=== PATIENT | male | born 1945 | race Caucasian/White ===

== ENCOUNTER 2016-12-16 15:15 | Emergency (ER) | payer MEDICARE, BC ==
--- NOTE | 2016-12-16 16:16 | EDM.PDOC ---
[id number] 4d ABDOMINAL PAIN Time Seen by Provider: 12/16/16 16:13 Source: Reports: Patient, Family History Limitations: Reports: No limitations - History of Present Illness INITIAL COMMENTS - FREE TEXT/NARRATIVE: Pt has severe pain under the rt rib cage. He does hurt when he takes a deep breatth. 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 He lifted a drag a couple of days ago, Timing/Duration: Reports: Hour(s):, Getting worse, Waxing/waning Location: other (pt has had his GB out.) Quality: Reports: cramping, fullness - Related Data Allergies/ADRs: Allergies Allergy/AdvReac Type Severity Reaction Status Date / Time atorvastatin calcium Allergy Swelling Verified 12/16/16 15:35 [From Lipitor] cholestyramine Allergy Swelling Verified 12/16/16 15:35 [Cholestyramine] niacin Allergy Burning Verified 12/16/16 15:35 rosuvastatin calcium Allergy Swelling Verified 12/16/16 15:35 [From Crestor] codeine AdvReac Nausea Verified 12/16/16 15:35 meperidine HCl [From Demerol] AdvReac Headache Verified 12/16/16 15:35 Home Meds: Home Meds Clopidogrel Bisulfate [Clopidogrel] 75 mg PO DAILY 08/06/13 [History] Levothyroxine Sodium [Synthroid] 200 - 300 mcg PO DAILY 08/06/13 [History] Lisinopril 10 mg PO DAILY 08/06/13 [History] Pantoprazole [ProTONIX] 40 mg PO BID 08/06/13 [History] Simvastatin [Zocor] 80 mg PO BEDTIME 08/06/13 [History] Cholecalciferol (Vitamin D3) [Vitamin D3] 1,000 intnl unit PO DAILY 04/26/14 [ History] Ibuprofen [Advil] 400 mg PO Q6H PRN 04/26/14 [History] Nitroglycerin [Nitrostat] 0.4 mg SL ASDIRECTED PRN 04/26/14 [History] Phenytoin Sodium Extended [Dilantin] 300 mg PO DAILY 04/12/16 [History] Past Medical History HEENT History: Reports: Hard of hearing, Impaired vision, Other (see below) Other HEENT History: Hearing aids and glasses Cardiovascular History: Reports: CAD, High cholesterol, Hypertension Respiratory History: Reports: Other (see below) Other Respiratory History: Lung nodule Gastrointestinal History: Reports: Cholelithiasis, GERD, Other (see below) Other Gastrointestinal History: Barretts Genitourinary History: Reports: BPH Musculoskeletal History: Reports: Back pain, chronic Neurological History: Reports: CVA, Seizure Hematologic History: Reports: Anticoagulation therapy Oncologic (Cancer) History: Reports: Thyroid - Past Surgical History GI Surgical History: Reports: Appendectomy, Cholecystectomy Endocrine Surgical History: Reports: Thyroidectomy Other Musculoskeletal Surgeries/Procedures:: wrist surgery Social & Family History - Tobacco Use Smoking Status *Q: Never Smoker Second Hand Smoke Exposure: No - Caffeine Use Caffeine Use: Reports: Coffee - Alcohol Use Days Per Week of Alcohol Use: 0 Number of Drinks Per Day: 0 Total Drinks Per Week: 0 - Recreational Drug Use Recreational Drug Use: No - Living Situation & Occupation Living situation: Reports: , with spouse ED ROS GENERAL - Review of Systems Review Of Systems: See Below Constitutional: Reports: no symptoms HEENT: Reports: No symptoms Respiratory: Reports: No Symptoms Cardiovascular: Reports: No symptoms Endocrine: Reports: no symptoms GI/Abdominal: Reports: Other ( severe pain in the rt upper quadrant under the rt rib cage. ) : Reports: no symptoms ED EXAM, GI/ABD - Physical Exam Exam: See Below Text/Narrative:: pt arrived with pain in the rt upper abdoman. He is particularly tender in the rt cva area. He has been doing some heavier work recently Exam Limited By: No limitations General Appearance: alert, moderate distress, other (pt is hurting alot when he takes a dep breath. ) Ears: normal TMs Nose: normal inspection Throat/Mouth: Normal inspection Head: atraumatic Neck: normal inspection Respiratory/Chest: no respiratory distress Cardiovascular: regular rate, rhythm GI/Abdominal: soft, tenderness (Male) Exam: Normal inspection Rectal (Males) Exam: Deferred Back Exam: normal inspection Extremities: normal inspection Neurological: alert, oriented, normal cognition Psychiatric: normal affect Course - Vital Signs Last Recorded V/S: Last Vital Signs Temp 37.3 C 12/16/16 15:31 Pulse 61 12/16/16 18:46 Resp 16 12/16/16 18:46 BP 154/98 H 12/16/16 18:46 Pulse Ox 97 12/16/16 18:46 - Orders/Labs/Meds Labs: Laboratory Tests 12/16/16 12/16/16 12/16/16 Range/Units 15:50 15:50 15:50 WBC 5.4 (4.5-11.0) K/uL RBC 4.59 (4.30-5.90) M/uL Hgb 14.0 (12.0-15.0) g/dL Hct 41.9 (40.0-54.0) % MCV 91 (80-98) fL MCH 31 (27-31) pg MCHC 33 (32-36) % Plt Count 225 (150-400) K/uL Neut % (Auto) 54 (36-66) % Lymph % (Auto) 31 (24-44) % [place] % (Auto) 13 H (2-6) % Eos % (Auto) 2 (2-4) % Baso % (Auto) 1 (0-1) % Sodium 142 (140-148) mmol/L Potassium 4.0 (3.6-5.2) mmol/L Chloride 108 (100-108) mmol/L Carbon Dioxide 28 (21-32) mmol/L Anion Gap 6.4 (5.0-14.0) mmol/L BUN 17 (7-18) mg/dL Creatinine 1.1 (0.8-1.3) mg/dL Est Cr Clr Drug Dosing 58.28 mL/min Estimated GFR (MDRD) > 60 (>60) Glucose 106 (74-106) mg/dL Calcium 8.2 L (8.5-10.1) mg/dL Total Bilirubin 0.2 D (0.2-1.0) mg/dL AST 19 (15-37) U/L ALT 27 (12-78) U/L Alkaline Phosphatase 83 (46-116) U/L C-Reactive Protein 0.16 (0.0-0.3) mg/dL Total Protein 6.4 (6.4-8.2) g/dL Albumin 3.8 (3.4-5.0) g/dL Globulin 2.6 (2.3-3.5) g/dL Albumin/Globulin Ratio 1.5 (1.2-2.2) Lipase (73-393) U/L Urine Color Urine Appearance Urine pH (4.5-8.0) Ur Specific [place] (1.008-1.030) Urine Protein (NEGATIVE) mg/dL Urine Glucose (UA) (NEGATIVE) mg/dL Urine Ketones (NEGATIVE) mg/dL Urine Occult Blood (NEGATIVE) Urine Nitrite (NEGAITVE) Urine Bilirubin (NEGATIVE) Urine Urobilinogen (NORMAL) mg/dL Ur Leukocyte Esterase (NEGATIVE) Urine RBC (0-5) Urine WBC (0-5) Ur Epithelial Cells Amorphous Sediment Urine Bacteria Urine Mucus 12/16/16 12/16/16 Range/Units 16:16 16:52 WBC (4.5-11.0) K/uL RBC (4.30-5.90) M/uL Hgb (12.0-15.0) g/dL Hct (40.0-54.0) % MCV (80-98) fL MCH (27-31) pg MCHC (32-36) % Plt Count (150-400) K/uL Neut % (Auto) (36-66) % Lymph % (Auto) (24-44) % [place] % (Auto) (2-6) % Eos % (Auto) (2-4) % Baso % (Auto) (0-1) % Sodium (140-148) mmol/L Potassium (3.6-5.2) mmol/L Chloride (100-108) mmol/L Carbon Dioxide (21-32) mmol/L Anion Gap (5.0-14.0) mmol/L BUN (7-18) mg/dL Creatinine (0.8-1.3) mg/dL Est Cr Clr Drug Dosing mL/min Estimated GFR (MDRD) (>60) Glucose (74-106) mg/dL Calcium (8.5-10.1) mg/dL Total Bilirubin (0.2-1.0) mg/dL AST (15-37) U/L ALT (12-78) U/L Alkaline Phosphatase (46-116) U/L C-Reactive Protein (0.0-0.3) mg/dL Total Protein (6.4-8.2) g/dL Albumin (3.4-5.0) g/dL Globulin (2.3-3.5) g/dL Albumin/Globulin Ratio (1.2-2.2) Lipase 193 (73-393) U/L Urine Color Yellow Urine Appearance Clear Urine pH 6.5 (4.5-8.0) Ur Specific [place] 1.020 (1.008-1.030) Urine Protein Negative (NEGATIVE) mg/dL Urine Glucose (UA) Normal (NEGATIVE) mg/dL Urine Ketones Negative (NEGATIVE) mg/dL Urine Occult Blood Negative (NEGATIVE) Urine Nitrite Negative (NEGAITVE) Urine Bilirubin Negative (NEGATIVE) Urine Urobilinogen 1 (NORMAL) mg/dL Ur Leukocyte Esterase Negative (NEGATIVE) Urine RBC 0-5 (0-5) Urine WBC 0-5 (0-5) Ur Epithelial Cells Few Amorphous Sediment Not seen Urine Bacteria Few Urine Mucus Rare Meds: Medications Discontinued Medications Generic Name Dose Route Start Last Admin Trade Name Freq PRN Reason Stop Dose Admin Sodium Chloride 85 mls @ 3.5 mls/sec 12/16/16 18:00 12/16/16 18:16 Normal Saline IV 3.5 mls/sec ASDIRECTED AYAD Administration Iopamidol 147 ml 12/16/16 17:56 12/16/16 18:18 Isovue-300 (61%) IV 12/17/16 17:57 147 ml . DIRECTED PRN Administration RADIOLOGY EXAM Ketorolac Tromethamine 60 mg 12/16/16 16:45 12/16/16 17:06 Toradol IM 12/16/16 16:46 60 mg ONETIME ONE Administration Sodium Chloride 10 ml 12/16/16 17:56 12/16/16 18:15 Saline Flush FLUSH 10 ml ONETIME PRN Administration per radiology protocol - Re-Assessments/Exams Free Text/Narrative Re-Assessment/Exam: 12/19/16 07:29 pt was found to have normal lab work. a cat scn of the abdoman was done which was neg. It was felt the pain was muscle related to the heavier work he has been doing. Departure - Departure Time of Disposition: 19:09 Disposition: Home, Self-Care 01 Condition: fair Clinical Impression: Muscle spasm Instructions: Muscle Cramps and Spasms, [id number] Referrals: Aaron Merritt MD [Primary Care Provider] - Forms: ED Department Discharge Care Plan Goals: heat to rt upper abdoman, flexeril 10mg hs, norco 5/325 q6h prn for pain, rtc if increased problems.
[2016-12-16] MEDS ORDERED: Ketorolac 60 MG/2 ML SDV IM ONE (16:45)
[2016-12-16] MEDS ORDERED: Sodium Chloride 0.9% 10 ML Syringe FLUSH PRN (17:56)
[2016-12-16] MEDS ORDERED: Iopamidol 612 MG/ML 150 ML Bottle IV PRN (17:56)
[2016-12-16 18:46] VITALS: BP 154/98
--- NOTE | 2016-12-17 10:12 | CR ---
Chest 2V HISTORY: Pain COMPARISON: 03/04/2013 FINDINGS: Cardiac size and pulmonary vessels normal. There are no infiltrates or effusions. No pneum othorax. The osseous structures appear normal. IMPRESSION: No acute pulmonary disease.
== END 2016-12-16 19:19 | disposition home or self-care (01) ==
LOC: JP.ED 15:15
DX: M62.838 Other muscle spasm (principal); R10.11 Right upper quadrant pain; I25.10 Atherosclerotic heart disease of native coronary artery without angina pectoris; E78.00 Pure hypercholesterolemia, unspecified; I10 Essential (primary) hypertension; K21.9 Gastro-esophageal reflux disease without esophagitis; Z86.73 Personal history of transient ischemic attack (TIA), and cerebral infarction without residual deficits; Z88.5 Allergy status to narcotic agent; Z88.8 Allergy status to other drugs, medicaments and biological substances; Z79.899 Other long term (current) drug therapy; Z90.49 Acquired absence of other specified parts of digestive tract
CPT/HCPCS: 36415; 71020; 74177; 80053; 81001; 83690; 85025; 86140; 96372; 99285; J1885; J7030; J7050; 99283

== ENCOUNTER 2017-03-25 09:10 | Day surgery (SDC) | payer MEDICARE, BC ==
[2017-03-25] MEDS ORDERED: Dextrose 5%-Lactated Ringers 1,000 ML IV SCH (09:15)
[2017-03-25] MEDS ORDERED: Midazolam 1 MG/ML 2 ML SDV ONE (10:00)
[2017-03-25] MEDS ORDERED: Propofol 200 MG/20 ML SDV ONE (10:00)
[2017-03-25] MEDS ORDERED: fentaNYL 100 MCG/2 ML SDV ONE (10:00)
[2017-03-25 12:37] VITALS: BP 118/74
--- NOTE | 2017-03-31 11:52 | OR ---
DATE OF PROCEDURE: 03/25/2017 PREOPERATIVE DIAGNOSIS: Family history of colon carcinoma and personal history of adenomatous colon polyps. POSTOPERATIVE DIAGNOSIS: Normal colorectal examination. PROCEDURE: Flexible colonoscopy. ANESTHESIA: IV sedation. INDICATION FOR PROCEDURE: This is a 71-year-old presenting for followup colonoscopy. He has a personal history of adenomatous colon polyps as well as mother having colon cancer. Plan is to proceed with a colonoscopy with biopsies and/or polypectomy as indicated. Potential risks including bleeding and perforation were discussed, and the patient wishes to proceed. DETAILS OF PROCEDURE: The patient was taken to the operating room and placed in a left lateral decubitus position. IV sedation was administered after which the initial digital rectal exam was performed and was unremarkable. Colonoscope was then passed into the rectum with retroflexion revealing uncomplicated hemorrhoidal columns. The scope was eventually passed to the level of the cecum. The prep was fairly good. There were some scattered solid and occasional areas of liquid stool present, but the vast majority of the surfaces were well visualized and to that level no abnormalities were noticed. There were no diverticula, no areas of colitis, and no recurrent polyps or other signs of neoplasia. The scope was then withdrawn and the above findings reconfirmed. The procedure was then concluded. The patient was taken to the recovery room in a satisfactory condition. Given the above history, the patient should have a repeat colonoscopy in 5 years if at that time his health is still reasonably well maintained. Kenney Rodriguez MD /[id number]
== END 2017-03-25 12:00 | disposition home or self-care (01) ==
LOC: JP.SDS 09:10
PROVIDERS: ATTEND Surgery
DX: Z12.11 Encounter for screening for malignant neoplasm of colon (principal); I25.10 Atherosclerotic heart disease of native coronary artery without angina pectoris; I10 Essential (primary) hypertension; Z79.899 Other long term (current) drug therapy; Z86.010 Personal history of colon polyps; Z80.0 Family history of malignant neoplasm of digestive organs
CPT/HCPCS: G0105; J2250; J2704; J3010

== ENCOUNTER 2017-08-29 05:01 | Emergency (ER) | payer MEDICARE, BC ==
--- NOTE | 2017-08-29 05:57 | EDM.PDOC ---
ED HPI GENERAL MEDICAL PROBLEM - General Chief Complaint: Abdominal Pain Stated Complaint: ABD PAIN Time Seen by Provider: 08/29/17 05:45 Source of Information: Reports: Patient, Old Records, RN History Limitations: Reports: No Limitations - History of Present Illness INITIAL COMMENTS - FREE TEXT/NARRATIVE: 71 yo male present with low abdominal pain that gets worse at times. No fever. Mild nausea on and off for several days. Had a normal BM yesterday morning. Had a loose stool yesterday afternoon. Had a small stool this morning. PHx of both appendectomy and cholecystectomy. Voiding normally. Onset: Today Duration: Hour(s):, Constant, Waxing/Waning Location: Reports: Abdomen (low) Quality: Reports: Ache, Other (cramping) Severity: Moderate Improves with: Reports: None Worsens with: Reports: None Context: Reports: Other (unknown) Associated Symptoms: Reports: Nausea/Vomiting (no vomiting, nausea mild). Denies: Fever/Chills Treatments CLINICAL DIETICIAN: Reports: Other (see below) (none) Lower Abdomen Pain Score (Numeric/FACES): 8 - Related Data Allergies Allergy/AdvReac Type Severity Reaction Status Date / Time atorvastatin calcium Allergy Swelling Verified 08/29/17 05:16 [From Lipitor] cholestyramine Allergy Swelling Verified 08/29/17 05:16 [Cholestyramine] niacin Allergy Burning Verified 08/29/17 05:16 rosuvastatin calcium Allergy Swelling Verified 08/29/17 05:16 [From Crestor] codeine AdvReac Nausea Verified 08/29/17 05:16 meperidine HCl [From Demerol] AdvReac Headache Verified 08/29/17 05:16 Home Meds: Home Meds Clopidogrel Bisulfate [Clopidogrel] 75 mg PO DAILY 08/06/13 [History] Levothyroxine Sodium [Synthroid] 200 - 300 mcg PO ASDIRECTED 08/06/13 [History] Lisinopril 10 mg PO DAILY 08/06/13 [History] Pantoprazole [ProTONIX] 40 mg PO BID 08/06/13 [History] Simvastatin [Zocor] 80 mg PO BEDTIME 08/06/13 [History] Cholecalciferol (Vitamin D3) [Vitamin D3] 1,000 intnl unit PO DAILY 04/26/14 [ History] Ibuprofen [Advil] 400 mg PO Q6H PRN 04/26/14 [History] Nitroglycerin [Nitrostat] 0.4 mg SL ASDIRECTED PRN 04/26/14 [History] Phenytoin Sodium Extended [Dilantin] 330 mg PO DAILY 04/12/16 [History] Phenytoin [Dilantin] 30 mg PO .DINNER 03/21/17 [History] Past Medical History HEENT History: Reports: Hard of Hearing, Impaired Vision, Other (See Below) Other HEENT History: Hearing aids and glasses Cardiovascular History: Reports: CAD, High Cholesterol, Hypertension Respiratory History: Reports: Other (See Below) Other Respiratory History: Lung nodule Gastrointestinal History: Reports: Cholelithiasis, Colon Polyp, Gastritis, GERD , Other (See Below) Other Gastrointestinal History: Barretts Genitourinary History: Reports: BPH Musculoskeletal History: Reports: Arthritis, Back Pain, Chronic, Fracture Neurological History: Reports: CVA, Seizure Psychiatric History: Reports: None Endocrine/Metabolic History: Reports: Obesity/BMI 30+, Other (See Below) Other Endocrine/Metabolic History: thyroid CA Hematologic History: Reports: Anticoagulation Therapy Immunologic History: Reports: None Oncologic (Cancer) History: Reports: Thyroid Dermatologic History: Reports: None - Infectious Disease History Infectious Disease History: Reports: Chicken Pox, Measles, Mumps - Past Surgical History Head Surgeries/Procedures: Reports: None HEENT Surgical History: Reports: None Cardiovascular Surgical History: Reports: None Respiratory Surgical History: Reports: Lung Biopsies GI Surgical History: Reports: Appendectomy, Cholecystectomy, Colonoscopy, EGD, Polypectomy Male Surgical History: Reports: None Endocrine Surgical History: Reports: Thyroidectomy Neurological Surgical History: Reports: None Musculoskeletal Surgical History: Reports: Other (See Below) Other Musculoskeletal Surgeries/Procedures:: right wrist fx-plate and screws Oncologic Surgical History: Reports: None Dermatological Surgical History: Reports: None Social & Family History - Family History Family Medical History: Noncontributory - Tobacco Use Smoking Status *Q: Never Smoker Second Hand Smoke Exposure: Yes - Caffeine Use Caffeine Use: Reports: Coffee - Alcohol Use Days Per Week of Alcohol Use: 0 Number of Drinks Per Day: 0 Total Drinks Per Week: 0 - Recreational Drug Use Recreational Drug Use: No - Living Situation & Occupation Living situation: Reports: , with Spouse ED ROS GENERAL - Review of Systems Review Of Systems: See Below Constitutional: Reports: No Symptoms HEENT: Reports: No Symptoms Respiratory: Reports: No Symptoms Cardiovascular: Reports: No Symptoms GI/Abdominal: Reports: Abdominal Pain, Nausea. Denies: Anorexia, Black Stool, Bloody Stool, Constipation, Diarrhea, Decreased Appetite, Distension, Flatus, Hematochezia, Melena, Mucous in Stool, Stool Incontinence, Vomiting : Reports: No Symptoms Musculoskeletal: Reports: No Symptoms Skin: Reports: No Symptoms Neurological: Reports: No Symptoms ED EXAM, GI/ABD - Physical Exam Exam: See Below Exam Limited By: No Limitations General Appearance: Alert, WD/WN, No Apparent Distress Eyes: Bilateral: Normal Appearance Ears: Normal External Exam, Normal Canal, Hearing Grossly Normal, Normal TMs Nose: Normal Inspection, Normal Mucosa Throat/Mouth: Normal Inspection, Normal Lips, Normal Oropharynx, Normal Voice, No Airway Compromise Head: Atraumatic, Normocephalic Neck: Normal Inspection, Supple Respiratory/Chest: No Respiratory Distress, Lungs Clear, Normal Breath Sounds, No Accessory Muscle Use Cardiovascular: Regular Rate, Rhythm, No Edema GI/Abdominal Exam: Normal Bowel Sounds, Soft, No Distention, Tender (mild, lower abdominal tenderness. No rebound or guarding.). No: Non-Tender, Distended , Guarding, Rigid, Rebound, Hernia Rectal (Males) Exam: Normal Exam, Normal Rectal Tone, Prostate Normal. No: Black Stool, Fecal Impaction, Tenderness Back Exam: Normal Inspection. No: CVA Tenderness (R), CVA Tenderness (L) Extremities: Normal Inspection, Normal Range of Motion, Non-Tender, No Pedal Edema Neurological: Alert, Oriented, CN II-XII Intact, Normal Cognition, No Motor/ Sensory Deficits Psychiatric: Normal Affect, Normal Mood Skin Exam: Warm, Dry, Intact, Normal Color, No Rash Lymphatic: No Adenopathy Course - Vital Signs Text/Narrative:: Bladder scan 52 ml post-void Last Recorded V/S: Last Vital Signs Temp 36.1 C 08/29/17 07:02 Pulse 68 08/29/17 07:02 Resp 15 08/29/17 07:02 BP 159/87 H 08/29/17 07:02 Pulse Ox 97 08/29/17 07:02 - Orders/Labs/Meds Orders: Active Orders 24 hr Category Date Time Status Enema [RC] ASDIRECTED Care 08/29/17 06:25 Active Labs: Laboratory Tests 08/29/17 08/29/17 08/29/17 Range/Units 06:01 06:01 06:01 WBC 7.6 (4.5-11.0) K/uL RBC 4.81 (4.30-5.90) M/uL Hgb 14.4 (12.0-15.0) g/dL Hct 42.7 (40.0-54.0) % MCV 89 (80-98) fL MCH 30 (27-31) pg MCHC 34 (32-36) % Plt Count 233 (150-400) K/uL Sodium 143 (140-148) mmol/L Potassium 4.1 (3.6-5.2) mmol/L Chloride 107 (100-108) mmol/L Carbon Dioxide 28 (21-32) mmol/L Anion Gap 7.7 (5.0-14.0) mmol/L BUN 16 (7-18) mg/dL Creatinine 0.9 (0.8-1.3) mg/dL Est Cr Clr Drug Dosing 71.40 mL/min Estimated GFR (MDRD) > 60 (>60) Glucose 98 (74-106) mg/dL Calcium 8.5 (8.5-10.1) mg/dL C-Reactive Protein 0.09 (0.0-0.3) mg/dL Urine Color Urine Appearance Urine pH (4.5-8.0) Ur Specific [place] (1.008-1.030) Urine Protein (NEGATIVE) mg/dL Urine Glucose (UA) (NEGATIVE) mg/dL Urine Ketones (NEGATIVE) mg/dL Urine Occult Blood (NEGATIVE) Urine Nitrite (NEGAITVE) Urine Bilirubin (NEGATIVE) Urine Urobilinogen (NORMAL) mg/dL Ur Leukocyte Esterase (NEGATIVE) Urine RBC (0-5) Urine WBC (0-5) Ur Epithelial Cells Amorphous Sediment Urine Bacteria Urine Mucus 08/29/17 Range/Units 06:11 WBC (4.5-11.0) K/uL RBC (4.30-5.90) M/uL Hgb (12.0-15.0) g/dL Hct (40.0-54.0) % MCV (80-98) fL MCH (27-31) pg MCHC (32-36) % Plt Count (150-400) K/uL Sodium (140-148) mmol/L Potassium (3.6-5.2) mmol/L Chloride (100-108) mmol/L Carbon Dioxide (21-32) mmol/L Anion Gap (5.0-14.0) mmol/L BUN (7-18) mg/dL Creatinine (0.8-1.3) mg/dL Est Cr Clr Drug Dosing mL/min Estimated GFR (MDRD) (>60) Glucose (74-106) mg/dL Calcium (8.5-10.1) mg/dL C-Reactive Protein (0.0-0.3) mg/dL Urine Color Yellow Urine Appearance Clear Urine pH 6.5 (4.5-8.0) Ur Specific [place] 1.015 (1.008-1.030) Urine Protein Negative (NEGATIVE) mg/dL Urine Glucose (UA) Normal (NEGATIVE) mg/dL Urine Ketones Negative (NEGATIVE) mg/dL Urine Occult Blood Negative (NEGATIVE) Urine Nitrite Negative (NEGAITVE) Urine Bilirubin Negative (NEGATIVE) Urine Urobilinogen Normal (NORMAL) mg/dL Ur Leukocyte Esterase Negative (NEGATIVE) Urine RBC 0-5 (0-5) Urine WBC Not seen (0-5) Ur Epithelial Cells Not seen Amorphous Sediment Rare Urine Bacteria Not seen Urine Mucus Not seen Meds: Medications Discontinued Medications Generic Name Dose Route Start Last Admin Trade Name Winnie PRN Reason Stop Dose Admin Acetaminophen 1,000 mg 08/29/17 06:54 Tylenol Extra Strength PO 08/29/17 06:55 ONETIME ONE - Radiology Interpretation Free Text/Narrative:: Abdominal X-ray-some increase in stool, no other pathology noted. Departure - Departure Time of Disposition: 07:00 Disposition: Home, Self-Care 01 Condition: Good Clinical Impression: Abdominal pain Qualifiers: Abdominal location: lower abdomen, unspecified Qualified Code(s): R10.30 - Lower abdominal pain, unspecified - Discharge Information Instructions: Abdominal Pain, Adult, [id number] Referrals: PCP,None [Primary Care Provider] - Forms: ED Department Discharge Additional Instructions: Acetaminophen 1000 mg every 6 hrs as needed for pain relief. Take Zofran as needed for nausea. Light diet and clear liquids. F/U with your provider for recheck. - My Orders Last 24 Hours: My Active Orders 08/29/17 06:25 Enema [RC] ASDIRECTED - Assessment/Plan Last 24 Hours: My Active Orders 08/29/17 06:25 Enema [RC] ASDIRECTED
[2017-08-29] MEDS ORDERED: Acetaminophen 500 MG Tab PO ONE (06:54)
[2017-08-29 07:02] VITALS: BP 159/87
--- NOTE | 2017-08-29 11:09 | CR ---
Abdomen 1V Flat HISTORY: Abdominal pain COMPARISON: CT scan 12/16/2016 FINDINGS: Surgical clips in the gallbladder fossa. Small surgical clip in the low pelvis. There is sc attered stool throughout nondilated colon. No free air no evidence for obstruction. Impression: Probable mild constipation. No obstruction.
== END 2017-08-29 07:08 | disposition home or self-care (01) ==
LOC: JP.ED 05:01
DX: R10.30 Lower abdominal pain, unspecified (principal); I10 Essential (primary) hypertension; E78.00 Pure hypercholesterolemia, unspecified; I25.10 Atherosclerotic heart disease of native coronary artery without angina pectoris; Z79.899 Other long term (current) drug therapy; Z88.5 Allergy status to narcotic agent; Z88.8 Allergy status to other drugs, medicaments and biological substances
CPT/HCPCS: 36415; 51798; 74018; 74018-26; 80048; 81001; 85027; 86140; 99283; 99284-25

== ENCOUNTER 2017-10-06 10:44 | Emergency (ER) | payer MEDICARE, BC ==
[2017-10-06 11:10] VITALS: BP 146/88
--- NOTE | 2017-10-06 11:34 | EDM.PDOC ---
ED HPI GENERAL MEDICAL PROBLEM - General Chief Complaint: Skin Complaint Stated Complaint: SORES ON FOREHEAD Time Seen by Provider: 10/06/17 11:20 Source of Information: Reports: Patient, Family History Limitations: Reports: No Limitations - History of Present Illness INITIAL COMMENTS - FREE TEXT/NARRATIVE: 71 yo male here with redness/induration to the area between his eyebrows for the past 3 days. He noticed it has spread slightly downward toward his medial L eye today. He has not had a fever or pruritis. No hx of the same. He and his wondered if it might be shingles today so they came to the ER. They have not been to the clinic for this yet. He has no hx of shingles and did have a shingles vaccine. Onset: Gradual Onset Date: 10/03/17 Duration: Day(s):, Getting Worse (slowly) Location: Reports: Face (upper nasal bridge) Quality: Reports: Other (mild tenderness with palpation only) Severity: Mild Improves with: Reports: None Worsens with: Reports: Other (? time) Context: Reports: Other (unknown) Associated Symptoms: Reports: No Other Symptoms Treatments QUILTER FIXER: Reports: Other (see below) (none) - Related Data Allergies Allergy/AdvReac Type Severity Reaction Status Date / Time atorvastatin calcium Allergy Swelling Verified 10/06/17 11:13 [From Lipitor] cholestyramine Allergy Swelling Verified 10/06/17 11:13 [Cholestyramine] niacin Allergy Burning Verified 10/06/17 11:13 rosuvastatin calcium Allergy Swelling Verified 10/06/17 11:13 [From Crestor] codeine AdvReac Nausea Verified 10/06/17 11:13 meperidine HCl [From Demerol] AdvReac Headache Verified 10/06/17 11:13 Home Meds: Home Meds Clopidogrel Bisulfate [Clopidogrel] 75 mg PO DAILY 08/06/13 [History] Levothyroxine Sodium [Synthroid] 200 - 300 mcg PO ASDIRECTED 08/06/13 [History] Lisinopril 10 mg PO DAILY 08/06/13 [History] Pantoprazole [ProTONIX] 40 mg PO BID 08/06/13 [History] Simvastatin [Zocor] 80 mg PO BEDTIME 08/06/13 [History] Cholecalciferol (Vitamin D3) [Vitamin D3] 1,000 intnl unit PO DAILY 04/26/14 [ History] Ibuprofen [Advil] 400 mg PO Q6H PRN 04/26/14 [History] Nitroglycerin [Nitrostat] 0.4 mg SL ASDIRECTED PRN 04/26/14 [History] Phenytoin Sodium Extended [Dilantin] 330 mg PO DAILY 04/12/16 [History] Phenytoin [Dilantin] 30 mg PO .DINNER 03/21/17 [History] Cephalexin [IJD: Cephalexin] 500 mg PO .EVERY 8 HOURS #20 cap 10/06/17 [Rx] Past Medical History HEENT History: Reports: Hard of Hearing, Impaired Vision, Other (See Below) Other HEENT History: Hearing aids and glasses Cardiovascular History: Reports: CAD, High Cholesterol, Hypertension Respiratory History: Reports: Other (See Below) Other Respiratory History: Lung nodule Gastrointestinal History: Reports: Cholelithiasis, Colon Polyp, Gastritis, GERD , Other (See Below) Other Gastrointestinal History: Barretts Genitourinary History: Reports: BPH Musculoskeletal History: Reports: Arthritis, Back Pain, Chronic, Fracture Neurological History: Reports: CVA, Seizure Psychiatric History: Reports: None Endocrine/Metabolic History: Reports: Obesity/BMI 30+, Other (See Below) Other Endocrine/Metabolic History: thyroid CA Hematologic History: Reports: Anticoagulation Therapy Immunologic History: Reports: None Oncologic (Cancer) History: Reports: Thyroid Dermatologic History: Reports: None - Infectious Disease History Infectious Disease History: Reports: Chicken Pox, Measles, Mumps - Past Surgical History Head Surgeries/Procedures: Reports: None HEENT Surgical History: Reports: None Cardiovascular Surgical History: Reports: None Respiratory Surgical History: Reports: Lung Biopsies GI Surgical History: Reports: Appendectomy, Cholecystectomy, Colonoscopy, EGD, Polypectomy Male Surgical History: Reports: None Endocrine Surgical History: Reports: Thyroidectomy Neurological Surgical History: Reports: None Musculoskeletal Surgical History: Reports: Other (See Below) Other Musculoskeletal Surgeries/Procedures:: right wrist fx-plate and screws Oncologic Surgical History: Reports: None Dermatological Surgical History: Reports: None Social & Family History - Family History Family Medical History: Noncontributory - Tobacco Use Smoking Status *Q: Never Smoker Second Hand Smoke Exposure: Yes - Caffeine Use Caffeine Use: Reports: Coffee - Alcohol Use Days Per Week of Alcohol Use: 0 Number of Drinks Per Day: 0 Total Drinks Per Week: 0 - Recreational Drug Use Recreational Drug Use: No - Living Situation & Occupation Living situation: Reports: , with Spouse ED ROS GENERAL - Review of Systems Review Of Systems: See Below Constitutional: Reports: No Symptoms HEENT: Reports: No Symptoms Respiratory: Reports: No Symptoms Musculoskeletal: Reports: No Symptoms Skin: Reports: Erythema. Denies: Bruising, Pruritis, Urticaria Neurological: Reports: No Symptoms ED EXAM, SKIN/RASH Exam: See Below Exam Limited By: No Limitations General Appearance: Alert, WD/WN, No Apparent Distress Eye Exam: Bilateral Eye: Normal Inspection Ears: Normal External Exam, Normal Canal, Hearing Loss Nose: Normal Inspection, Normal Mucosa, No Blood Throat/Mouth: Normal Inspection, Normal Lips, Normal Oropharynx, Normal Voice, No Airway Compromise Head: Atraumatic, Normocephalic Neck: Normal Inspection, Supple, Non-Tender Respiratory/Chest: No Respiratory Distress, Lungs Clear, Normal Breath Sounds, No Accessory Muscle Use Cardiovascular: Regular Rate, Rhythm Neurological: Alert, Oriented, CN II-XII Intact, Normal Cognition, No Motor/ Sensory Deficits Psychiatric: Normal Affect, Normal Mood Skin: Warm, Dry, Intact, Erythema (with slight induration, not warm to touch. ) , Other (No vesicles. No drainage. ) Location, Skin: Face (between eyebrows.) Characteristics: Confluent. No: Linear, Tequ[place], Vesicular, Bullous, Urticarial, Petechial Associated features: Tenderness (mild with touching only), Induration. No: Warmth Lymphatic: No Adenopathy Course - Vital Signs Last Recorded V/S: Last Vital Signs Temp 35.2 C 10/06/17 11:18 Pulse 71 10/06/17 11:18 Resp 16 10/06/17 11:18 BP 146/88 H 10/06/17 11:18 Pulse Ox 100 10/06/17 11:18 Departure - Departure Time of Disposition: 11:35 Disposition: Home, Self-Care 01 Condition: Good Clinical Impression: Dermatitis - Discharge Information Prescriptions: Cephalexin [IJD: Cephalexin] 500 mg PO .EVERY 8 HOURS #20 cap Referrals: Aaron Merritt MD [Primary Care Provider] - Forms: ED Department Discharge Additional Instructions: Avoid rubbing area. Take cephalexin as directed. Apply warm, moist compresses to area several times a day. See your doctor for recheck this week.
== END 2017-10-06 11:44 | disposition home or self-care (01) ==
LOC: JP.ED 10:44
DX: L30.9 Dermatitis, unspecified (principal); I10 Essential (primary) hypertension; I25.10 Atherosclerotic heart disease of native coronary artery without angina pectoris; E78.00 Pure hypercholesterolemia, unspecified; Z79.01 Long term (current) use of anticoagulants; Z77.22 Contact with and (suspected) exposure to environmental tobacco smoke (acute) (chronic); Z79.02 Long term (current) use of antithrombotics/antiplatelets; Z79.899 Other long term (current) drug therapy; Z88.5 Allergy status to narcotic agent; Z88.8 Allergy status to other drugs, medicaments and biological substances
CPT/HCPCS: 99283

== ENCOUNTER 2020-08-06 00:01 | Emergency (ER) | payer MEDICARE, BC ==
--- NOTE | 2020-08-06 00:34 | EDM.PDOC ---
ED HPI GENERAL MEDICAL PROBLEM - General Chief Complaint: General Stated Complaint: WEAKNESS Time Seen by Provider: 08/06/20 00:23 Source of Information: Reports: Patient History Limitations: Reports: No Limitations - History of Present Illness INITIAL COMMENTS - FREE TEXT/NARRATIVE: Patient presents from home describing right-sided weakness and feelings of imbalance when he awoke and got out of bed 2300 hrs. on 05 August. He felt okay when he went to bed approximately 90 minutes prior to that. When he awoke, he got out of bed but felt as though he was leaning to the right side. He bumped into a dresser and 2 other objects in his area while attempting to move to the bathroom. He felt as though he did not have his balance properly but he did not fall to the floor. His assisted him back to bed. He described what he says is numbness of each of his legs but what sounds like paresthesias or tingling. He has had a little bit of the same feeling in the upper extremities but nothing like the lower. His right arm feels weaker than the left. He does have a history of a prior stroke in 2005. That affected vision somewhat but did not require any kind of intervention at that time. He has had some residual visual field difficulties since that time. 1 week after that stroke, he had what sounds like a generalized seizure. He was started on phenytoin at that time and has continued on it since. He takes his dose in the evening around suppertime. Onset: Today Onset Date: 08/05/20 Onset Time: 23:00 Duration: Hour(s): Location: Reports: Upper Extremity, Right, Lower Extremity, Right Quality: Reports: Other (Right arm and leg weakness.) Severity: Mild Improves with: Reports: None Worsens with: Reports: Movement Associated Symptoms: Reports: Weakness (Right extremities as noted.). Denies: Confusion, Diaphoresis, Headaches back Pain Score (Numeric/FACES): 5 - Related Data Allergies Allergy/AdvReac Type Severity Reaction Status Date / Time adhesive Allergy Rash Verified 08/06/20 00:11 atorvastatin calcium Allergy Swelling Verified 08/06/20 00:11 [From Lipitor] cholestyramine Allergy Swelling Verified 08/06/20 00:11 [Cholestyramine] niacin Allergy Burning Verified 08/06/20 00:11 rosuvastatin calcium Allergy Swelling Verified 08/06/20 00:11 [From Crestor] codeine AdvReac Nausea Verified 08/06/20 00:11 meperidine HCl [From Demerol] AdvReac Headache Verified 08/06/20 00:11 Home Meds: Home Meds Levothyroxine Sodium [Synthroid] 200 - 300 mcg PO ASDIRECTED 08/06/13 [History] Lisinopril 10 mg PO DAILY 08/06/13 [History] Pantoprazole [ProTONIX] 40 mg PO BID 08/06/13 [History] Simvastatin [Zocor] 80 mg PO BEDTIME 08/06/13 [History] Cholecalciferol (Vitamin D3) [Vitamin D3] 1,000 intnl unit PO DAILY 04/26/14 [History] Ibuprofen [Advil] 400 mg PO Q6H PRN 04/26/14 [History] Clopidogrel Bisulfate [Clopidogrel] 1 tab PO DAILY 03/17/18 [History] Phenytoin Sodium Extended [Dilantin] 300 mg PO ASDIRECTED 03/17/18 [History] Phenytoin Sodium Extended [Dilantin] 400 mg PO ASDIRECTED 03/17/18 [History] Past Medical History HEENT History: Reports: Hard of Hearing, Impaired Vision, Other (See Below) Other HEENT History: Hearing aids and glasses. impaired vision d/t CVA Cardiovascular History: Reports: CAD, High Cholesterol, Hypertension Respiratory History: Reports: Other (See Below) Other Respiratory History: Lung nodule Gastrointestinal History: Reports: Cholelithiasis, Colon Polyp, Gastritis, GERD, Other (See Below) Other Gastrointestinal History: Barretts Genitourinary History: Reports: BPH Musculoskeletal History: Reports: Arthritis, Back Pain, Chronic, Fracture Neurological History: Reports: CVA, Seizure Psychiatric History: Reports: None Endocrine/Metabolic History: Reports: Hypothyroidism, Obesity/BMI 30+ Other Endocrine/Metabolic History: thyroid CA Hematologic History: Reports: Anticoagulation Therapy Immunologic History: Reports: None Oncologic (Cancer) History: Reports: Thyroid Dermatologic History: Reports: None - Infectious Disease History Infectious Disease History: Reports: Chicken Pox, Measles, Mumps - Past Surgical History Head Surgeries/Procedures: Reports: None Respiratory Surgical History: Reports: Lung Biopsies GI Surgical History: Reports: Appendectomy, Cholecystectomy, Colonoscopy, EGD, Polypectomy Endocrine Surgical History: Reports: Thyroidectomy Musculoskeletal Surgical History: Reports: Other (See Below) Other Musculoskeletal Surgeries/Procedures:: right wrist fx-plate and screws Social & Family History - Family History Family Medical History: No Pertinent Family History - Tobacco Use Tobacco Use Status *Q: Never Tobacco User - Caffeine Use Caffeine Use: Reports: Coffee, Soda - Recreational Drug Use Recreational Drug Use: No - Living Situation & Occupation Living situation: Reports: , with Spouse ED ROS GENERAL - Review of Systems Review Of Systems: See Below Constitutional: Reports: No Symptoms HEENT: Reports: Hearing Loss, Vision Change (Long-term vision changes related to previous stroke in 2006.) Respiratory: Reports: No Symptoms Cardiovascular: Reports: No Symptoms Endocrine: Reports: Fatigue GI/Abdominal: Reports: No Symptoms : Denies: Incontinence Musculoskeletal: Reports: Back Pain (Mid back pain x3 days which patient relates to moving heavy objects.) Skin: Reports: No Symptoms Neurological: Reports: Paresthesia (Paresthesias of both legs, possibly worse on right side.), Weakness (Right arm and leg weakness as described, right leg worse than arm and worse than left leg.) Psychiatric: Reports: No Symptoms Hematologic/Lymphatic: Reports: No Symptoms ED EXAM, GENERAL - Physical Exam Exam: See Below Free Text/Narrative:: This is an adult male interviewed in bed 9. His is present in the room. Exam Limited By: No Limitations General Appearance: Alert, No Apparent Distress (Patient is in no distress.) Eye Exam: Bilateral Eye: EOMI, Normal Inspection Ears: Hearing Loss (Long-term hearing loss, hearing aids in both ears.) Respiratory/Chest: No Respiratory Distress, Lungs Clear Cardiovascular: Regular Rate, Rhythm GI/Abdominal: Normal Bowel Sounds, Soft Neurological: CN II-XII Intact, Other (Neurologic exam shows inability to hold the right leg above gravity for 5 seconds. He can hold the left leg above for complete 5 seconds. There is no evidence of drift with either arm. Remainder of cranial nerves are intact.) Skin Exam: Warm #1 Interpretation EKG Date: 08/05/20 Time: 23:55 Rhythm: NSR [place]: LAD-Left [place] Deviation P-Wave: Present QRS: Normal ST-T: Normal QT: Normal Comparison: NA - No Prior EKG Course - Vital Signs Last Recorded V/S: Last Vital Signs Temp 35.5 C L 08/06/20 02:36 Pulse 58 L 08/06/20 02:36 Resp 12 08/06/20 02:36 BP 139/78 08/06/20 02:36 Pulse Ox 96 08/06/20 02:36 - Orders/Labs/Meds Orders: Active Orders 24 hr Category Date Time Status EKG Documentation Completion [RC] ASDIRECTED Care 08/06/20 01:01 Active Sodium Chloride 0.9% [Saline Flush] Med 08/06/20 01:01 Active 10 ml FLUSH ASDIRECTED PRN Saline Lock Insert [OM.PC] Routine Oth 08/06/20 01:01 Ordered EKG 12 Lead [EK] Routine Ther 08/06/20 01:01 Ordered Medication Orders Sodium Chloride (Saline Flush) 10 ml FLUSH ASDIRECTED PRN PRN Reason: Keep Vein Open Last Admin: 08/06/20 00:20 Dose: 10 ml Documented by: Labs: Laboratory Tests 08/06/20 08/06/20 08/06/20 Range/Units 01:00 01:00 01:00 WBC 7.3 (4.5-11.0) K/uL RBC 4.71 (4.30-5.90) M/uL Hgb 14.2 (12.0-15.0) g/dL Hct 43.4 (40.0-54.0) % MCV 92 (80-98) fL MCH 30 (27-31) pg MCHC 33 (32-36) % Plt Count 252 (150-400) K/uL Neut % (Auto) 45 (36-66) % Lymph % (Auto) 40 (24-44) % [place] % (Auto) 13 H (2-6) % Eos % (Auto) 2 (2-4) % Baso % (Auto) 0 (0-1) % PT 10.9 (9.5-12.0) sec INR 1.00 (0.80-1.20) Sodium 142 (140-148) mmol/L Potassium 3.9 (3.6-5.2) mmol/L Chloride 105 (100-108) mmol/L Carbon Dioxide 26 (21-32) mmol/L Anion Gap 10.8 (5.0-14.0) mmol/L BUN 17 (7-18) mg/dL Creatinine 1.2 (0.8-1.3) mg/dL Est Cr Clr Drug Dosing 51.26 mL/min Estimated GFR (MDRD) 59 L (>60) Glucose 93 (74-106) mg/dL Calcium 8.4 L (8.5-10.1) mg/dL Total Bilirubin 0.3 (0.2-1.0) mg/dL AST 23 (15-37) U/L ALT 30 (12-78) U/L Alkaline Phosphatase 71 (46-116) U/L Total Protein 6.3 L (6.4-8.2) g/dL Albumin 3.9 (3.4-5.0) g/dL Globulin 2.4 (2.3-3.5) g/dL Albumin/Globulin Ratio 1.6 (1.2-2.2) Meds: Medications Generic Name Dose Route Start Last Admin Trade Name Freq PRN Reason Stop Dose Admin Sodium Chloride 10 ml 08/06/20 01:01 08/06/20 00:20 Saline Flush FLUSH 10 ml ASDIRECTED PRN Administration Keep Vein Open Discontinued Medications Generic Name Dose Route Start Last Admin Trade Name Freq PRN Reason Stop Dose Admin Alteplase, Recombinant 8.75 mg 08/06/20 02:18 Activase 0.09 mg/kg (8.75 mg) 08/06/20 02:19 IV BOLUS STA Alteplase, Recombinant 78.65 0 mls @ 0 mls/hr 08/06/20 02:18 mg/ Alteplase, Recombinant IV 08/06/20 02:19 ASDIRECTED STA - Re-Assessments/Exams Free Text/Narrative Re-Assessment/Exam: 08/06/20 02:[address] was obtained which showed an old right posterior stroke but no hemorrhage or new acute changes. I discussed the findings with the patient who seems composed and on alarmed. I asked him where he would like to go for further care related to what seems to be a stroke and he indicated [facility]. I spoke with Dr. Rebolledo, the neurologist on-call at [facility]. The patient's stroke score at this time is to for the right leg weakness. Dr. Rebolledo recommends initiating TPA because of the time window involved. The patient has no contraindications to thrombolytics. Patient will receive 8.75 mg of alteplase as a bolus dose and 79.65 mg as of 1 hour infusion. Transfer to [place] is being arranged via [facility]. 08/06/20 02:36 Departure - Departure Time of Disposition: 02:35 Disposition: DC/Tfer to Acute Hospital 02 Clinical Impression: Stroke Qualifiers: CVA mechanism: unspecified Qualified Code(s): I63.9 - Cerebral infarction, unspecified - Discharge Information Referrals: Aaron Merritt MD [Primary Care Provider] - Forms: ED Department Discharge Sepsis Event Note (ED) - Evaluation Sepsis Screening Result: No Definite Risk - Focused Exam Vital Signs: Vital Signs Temp Pulse Resp BP Pulse Ox 08/06/20 02:36 35.5 C L 58 L 12 139/78 96 08/06/20 01:05 57 L 16 131/73 93 L 08/06/20 00:45 60 15 145/81 H 94 L 08/06/20 00:26 57 L 14 132/75 94 L 08/06/20 00:07 37.1 C 64 14 160/89 H 97 08/06/20 00:01 63 14 160/89 H 96 - My Orders Last 24 Hours: My Active Orders 08/06/20 01:01 EKG Documentation Completion [RC] ASDIRECTED Sodium Chloride 0.9% [Saline Flush] 10 ml FLUSH ASDIRECTED PRN Saline Lock Insert [OM.PC] Routine EKG 12 Lead [EK] Routine - Assessment/Plan Last 24 Hours: My Active Orders 08/06/20 01:01 EKG Documentation Completion [RC] ASDIRECTED Sodium Chloride 0.9% [Saline Flush] 10 ml FLUSH ASDIRECTED PRN Saline Lock Insert [OM.PC] Routine EKG 12 Lead [EK] Routine
[2020-08-06] MEDS ORDERED: Sodium Chloride 0.9% 10 ML Syringe FLUSH PRN (01:01)
--- NOTE | 2020-08-06 02:01 | CRLCT ---
INDICATION: Right-sided weakness and difficulty with balance for the past 3 hours. COMPARISON: CT of the head from 08/20/2019 TECHNIQUE: CT examination of the head was performed with 3 mm thick axial and coronal sections without intravenous contrast. Images were obtained from the vertex of the skull through the skull base, and I examined the images with the brain and bone windows. Please note that all CT scans at this facility use dose modulation, iterative reconstruction, and/or weight-based dosing when appropriate to reduce radiation dose to as low as reasonably achievable. FINDINGS: There is no change in an old area of infarction in the right posterior parietal cortex and subcortical white matter, in the distal right posterior MCA region. There is a new tiny high-density region in the distal M1 segment of the right MCA, consistent with either a small thrombus or intracranial atherosclerosis. This does not correlate with the patient`s history of right-sided weakness however. No vascular abnormality is seen in the left side of the brain. There is no sign of acute infarction or hemorrhage on the left side of the brain. The brain rest of the is normal in appearance for the patient`s age on today`s study, with no sign of mass lesion, mass effect, hemorrhage, or edema. The ventricles and sulci are normal in appearance for the patient`s age. The visualized portions of the orbits are normal in appearance. Note is made of bilateral aberrant carotid canals, extending along the inner surfaces of both middle ear cavities. The visualized paranasal sinuses and mastoids are clear. The osseous structures are normal in their appearance with no sign of abnormality in the skull base or calvarium. I discussed the findings with Dr. Kenyon at 0155 hours on 08/06/2020. IMPRESSION: Nothing seen that would explain the patient`s right-sided weakness. Small amount of thrombus versus intracranial atherosclerosis of the distal M1 segment of the right MCA. Stable old infarct in the right high posterior parietal MCA territory. 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 Please note that all CT scans at this facility use dose modulation, iterative reconstruction, and/or weight-based dosing when appropriate to reduce radiation dose to as low as reasonably achievable. Dictated by Leland Carolina MD @ Aug 06 2020 1:42AM Signed by Dr. Leland Carolina @ Aug 06 2020 1:59AM
[2020-08-06] MEDS ORDERED: INFUSION IV STA (02:18)
[2020-08-06] MEDS ORDERED: ALTEPLASE IV STA (02:18)
[2020-08-06 02:38] VITALS: BP 139/78; PULSE 58
== END 2020-08-06 03:04 ==
LOC: JP.ED 00:01
DX: I63.9 Cerebral infarction, unspecified (principal); I25.10 Atherosclerotic heart disease of native coronary artery without angina pectoris; E78.00 Pure hypercholesterolemia, unspecified; I10 Essential (primary) hypertension; K21.9 Gastro-esophageal reflux disease without esophagitis; E03.9 Hypothyroidism, unspecified; E66.9 Obesity, unspecified; Z68.33 Body mass index [BMI] 33.0-33.9, adult; Z79.01 Long term (current) use of anticoagulants; Z91.048 Other nonmedicinal substance allergy status; Z88.8 Allergy status to other drugs, medicaments and biological substances; Z88.5 Allergy status to narcotic agent; Z88.1 Allergy status to other antibiotic agents; Z79.02 Long term (current) use of antithrombotics/antiplatelets; Z79.899 Other long term (current) drug therapy
CPT/HCPCS: 36415; 37195; 70450; 80053; 85025; 85610; 93005; 93010; 99285; 99285-25; J2997

== ENCOUNTER 2020-08-31 19:43 | Emergency (ER) | payer MEDICARE, BC ==
[2020-08-31] MEDS ORDERED: Aspirin 81 MG Tab.Chew PO ONE (19:59)
[2020-08-31] MEDS ORDERED: Nitroglycerin 0.4 MG Tab.SL SL ONE (19:59)
--- NOTE | 2020-08-31 20:06 | EDM.PDOC ---
ED HPI GENERAL MEDICAL PROBLEM - General Stated Complaint: CHEST PAIN Time Seen by Provider: 08/31/20 19:45 Source of Information: Reports: Patient History Limitations: Reports: No Limitations - History of Present Illness INITIAL COMMENTS - FREE TEXT/NARRATIVE: 74-year-old male with no significant cardiac history presents with upper chest pain, back pain and neck pain for the past hour. It hurts to take a deep breath. He is very anxious, no nausea or vomiting, denies shortness of breath. He has not had pain like this in the past. Onset: Sudden Duration: Hour(s): (1 hour) Location: Reports: Neck, Chest Quality: Reports: Ache Severity: Moderate Associated Symptoms: Reports: Other (Pleuritic chest pain) chest pain Pain Score (Numeric/FACES): 7 - Related Data Allergies Allergy/AdvReac Type Severity Reaction Status Date / Time adhesive Allergy Rash Verified 08/31/20 20:01 atorvastatin calcium Allergy Swelling Verified 08/31/20 20:01 [From Lipitor] cholestyramine Allergy Swelling Verified 08/31/20 20:01 [Cholestyramine] niacin Allergy Burning Verified 08/31/20 20:01 rosuvastatin calcium Allergy Swelling Verified 08/31/20 20:01 [From Crestor] codeine AdvReac Nausea Verified 08/31/20 20:01 meperidine HCl [From Demerol] AdvReac Headache Verified 08/31/20 20:01 Home Meds: Home Meds Levothyroxine Sodium [Synthroid] 200 - 300 mcg PO ASDIRECTED 08/06/13 [History] Lisinopril 20 mg PO DAILY 08/06/13 [History] Pantoprazole [ProTONIX] 40 mg PO BID 08/06/13 [History] Simvastatin [Zocor] 80 mg PO BEDTIME 08/06/13 [History] Cholecalciferol (Vitamin D3) [Vitamin D3] 1,000 intnl unit PO DAILY 04/26/14 [History] Ibuprofen [Advil] 400 mg PO Q6H PRN 04/26/14 [History] Clopidogrel Bisulfate [Clopidogrel] 75 mg PO DAILY 03/17/18 [History] Phenytoin Sodium Extended [Dilantin] 300 mg PO ASDIRECTED 03/17/18 [History] Phenytoin Sodium Extended [Dilantin] 400 mg PO ASDIRECTED 03/17/18 [History] Past Medical History HEENT History: Reports: Hard of Hearing, Impaired Vision, Other (See Below) Other HEENT History: Hearing aids and glasses. impaired vision d/t CVA Cardiovascular History: Reports: CAD, High Cholesterol, Hypertension Respiratory History: Reports: Other (See Below) Other Respiratory History: Lung nodule Gastrointestinal History: Reports: Cholelithiasis, Colon Polyp, Gastritis, GERD, Other (See Below) Other Gastrointestinal History: Barretts Genitourinary History: Reports: BPH Musculoskeletal History: Reports: Arthritis, Back Pain, Chronic, Fracture Neurological History: Reports: CVA, Seizure Psychiatric History: Reports: None Endocrine/Metabolic History: Reports: Hypothyroidism, Obesity/BMI 30+ Other Endocrine/Metabolic History: thyroid CA Hematologic History: Reports: Anticoagulation Therapy Immunologic History: Reports: None Oncologic (Cancer) History: Reports: Thyroid Dermatologic History: Reports: None - Infectious Disease History Infectious Disease History: Reports: Chicken Pox, Measles, Mumps - Past Surgical History Head Surgeries/Procedures: Reports: None HEENT Surgical History: Reports: None Cardiovascular Surgical History: Reports: None Respiratory Surgical History: Reports: Lung Biopsies GI Surgical History: Reports: Appendectomy, Cholecystectomy, Colonoscopy, EGD, Polypectomy Male Surgical History: Reports: None Endocrine Surgical History: Reports: Thyroidectomy Neurological Surgical History: Reports: None Musculoskeletal Surgical History: Reports: Other (See Below) Other Musculoskeletal Surgeries/Procedures:: right wrist fx-plate and screws Oncologic Surgical History: Reports: None Dermatological Surgical History: Reports: None Social & Family History - Family History Family Medical History: No Pertinent Family History - Caffeine Use Caffeine Use: Reports: Coffee, Soda - Living Situation & Occupation Living situation: Reports: , with Spouse ED ROS GENERAL - Review of Systems Review Of Systems: See Below Constitutional: Reports: Malaise. Denies: Fever, Chills HEENT: Reports: No Symptoms Respiratory: Denies: Shortness of Breath Cardiovascular: Reports: Chest Pain GI/Abdominal: Denies: Abdominal Pain, Nausea, Vomiting : Reports: No Symptoms Musculoskeletal: Reports: Neck Pain, Shoulder Pain (Yes) Skin: Reports: No Symptoms Neurological: Denies: Headache ED EXAM, GENERAL - Physical Exam Exam: See Below Exam Limited By: No Limitations General Appearance: Alert, No Apparent Distress Eye Exam: Bilateral Eye: Normal Inspection Head: Atraumatic Neck: Supple, Non-Tender Respiratory/Chest: Lungs Clear Cardiovascular: Regular Rate, Rhythm Extremities: No: Pedal Edema Neurological: Alert, Oriented #1 Interpretation EKG Date: 08/31/20 Rhythm: NSR P-Wave: Present QRS: Normal EKG Interpretation Comments: Stable from 4 months ago, unchanged Course - Vital Signs Last Recorded V/S: Last Vital Signs Temp 99.0 F 08/31/20 20:12 Pulse 66 09/01/20 00:00 Resp 13 09/01/20 00:00 BP 127/87 09/01/20 00:00 Pulse Ox 93 L 09/01/20 00:00 - Orders/Labs/Meds Orders: Active Orders 24 hr Category Date Time Status EKG 12 Lead [EK] Routine Ther 08/31/20 19:47 Ordered Labs: Laboratory Tests 08/31/20 08/31/20 08/31/20 Range/Units 20:04 20:04 23:09 WBC 10.7 (4.5-11.0) K/uL RBC 4.63 (4.30-5.90) M/uL Hgb 14.2 (12.0-15.0) g/dL Hct 42.5 (40.0-54.0) % MCV 92 (80-98) fL MCH 31 (27-31) pg MCHC 33 (32-36) % Plt Count 228 (150-400) K/uL Neut % (Auto) 67 H (36-66) % Lymph % (Auto) 20 L (24-44) % Dane % (Auto) 11 H (2-6) % Eos % (Auto) 1 L (2-4) % Baso % (Auto) 0 (0-1) % Sodium 144 (140-148) mmol/L Potassium 3.7 (3.6-5.2) mmol/L Chloride 104 (100-108) mmol/L Carbon Dioxide 26 (21-32) mmol/L Anion Gap 14.5 H (5.0-14.0) mmol/L BUN 19 H (7-18) mg/dL Creatinine 1.1 (0.8-1.3) mg/dL Est Cr Clr Drug Dosing 55.92 mL/min Estimated GFR (MDRD) > 60 (>60) Glucose 100 (74-106) mg/dL Calcium 8.3 L (8.5-10.1) mg/dL Total Bilirubin 0.2 (0.2-1.0) mg/dL AST 15 (15-37) U/L ALT 26 (12-78) U/L Alkaline Phosphatase 70 (46-116) U/L Troponin I < 0.017 < 0.017 (0.000-0.056) ng/mL Total Protein 6.2 L (6.4-8.2) g/dL Albumin 3.7 (3.4-5.0) g/dL Globulin 2.5 (2.3-3.5) g/dL Albumin/Globulin Ratio 1.5 (1.2-2.2) Meds: Medications Discontinued Medications Generic Name Dose Route Start Last Admin Trade Name Winnie PRN Reason Stop Dose Admin Aspirin 324 mg 08/31/20 19:59 08/31/20 20:06 Aspirin PO 08/31/20 20:00 324 mg ONETIME ONE Administration Morphine Sulfate 2 mg 08/31/20 20:55 08/31/20 21:04 Morphine IVPUSH 08/31/20 20:56 2 mg ONETIME ONE Administration Nitroglycerin 0.4 mg 08/31/20 19:59 08/31/20 20:06 Nitrostat SL 08/31/20 20:00 0.4 mg ONETIME ONE Administration - Re-Assessments/Exams Free Text/Narrative Re-Assessment/Exam: 09/01/20 17:34 Initial EKG showed no ST changes, compared to EKG 6 months ago and is unchanged. He was given 324 mg of chewable aspirin. This was followed by 1 sublingual nitroglycerin. He thought the nitroglycerin seemed to help some. He remained stable. CBC CMP portable chest and troponin were drawn. Troponin returned 0, chest x-ray was negative. He still had 3/10 pain although he appeared comfortable, he was given 2 mg of IV morphine. Labs otherwise are reassuring. Patient was asked to stay 4 hours for a repeat troponin which again was 0. 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 An angiogram 5 years ago was negative. Patient will return if pain recurs and is persistent or he develops other concerns. Departure - Departure Time of Disposition: 00:15 Disposition: Home, Self-Care 01 Clinical Impression: Atypical chest pain - Discharge Information Instructions: Nonspecific Chest Pain, Adult, [id number] Referrals: Aaron Merritt MD [Primary Care Provider] - Forms: ED Department Discharge Care Plan Goals: Recheck in the next 48 hours if pain is persistent or worsening. Consider kesha acevedo to your primary provider about scheduling a stress test in the near future. - My Orders Last 24 Hours: My Active Orders 08/31/20 19:47 EKG 12 Lead [EK] Routine - Assessment/Plan Last 24 Hours: My Active Orders 08/31/20 19:47 EKG 12 Lead [EK] Routine
[2020-08-31] MEDS ORDERED: Morphine 2 MG/ML SYRINGE IVPUSH ONE (20:55)
[2020-09-01 00:01] VITALS: BP 127/87; PULSE 66
--- NOTE | 2020-09-01 09:20 | CR ---
CHEST: Portable 08/31/2020 at 9:19 PM CLINICAL HISTORY:Upper chest pain, neck pain COMPARISON:CT 2018 FINDINGS: Heart is borderline enlarged. Pulmonary vascular is normal. There are atherosclerotic changes in the aorta. There is some streaky atelectasis in the left lung base. No infiltrates are seen There are no effusions. IMPRESSION: Borderline cardiomegaly No acute cardiopulmonary process
== END 2020-09-01 00:26 | disposition home or self-care (01) ==
LOC: JP.ED 19:43
DX: R07.89 Other chest pain (principal); I25.10 Atherosclerotic heart disease of native coronary artery without angina pectoris; E78.00 Pure hypercholesterolemia, unspecified; I10 Essential (primary) hypertension; K21.9 Gastro-esophageal reflux disease without esophagitis; E03.9 Hypothyroidism, unspecified; E66.9 Obesity, unspecified; Z68.33 Body mass index [BMI] 33.0-33.9, adult; Z91.048 Other nonmedicinal substance allergy status; Z88.8 Allergy status to other drugs, medicaments and biological substances; Z88.5 Allergy status to narcotic agent; Z79.899 Other long term (current) drug therapy; Z79.02 Long term (current) use of antithrombotics/antiplatelets; Z86.73 Personal history of transient ischemic attack (TIA), and cerebral infarction without residual deficits
CPT/HCPCS: 36415; 71045; 80053; 84484; 85025; 93005; 93010; 96374; 99285; A9270; J2270

== ENCOUNTER 2020-10-27 08:17 | Day surgery (SDC) | payer MEDICARE, BC ==
[2020-10-27] MEDS ORDERED: Dextrose 5%-Lactated Ringers 1,000 ML IV SCH (09:00)
[2020-10-27] MEDS ORDERED: Propofol 200 MG/20 ML SDV ONE (09:20)
[2020-10-27] MEDS ORDERED: fentaNYL 100 MCG/2 ML SDV ONE (09:20)
[2020-10-27 11:29] VITALS: BP 125/85; PULSE 60
--- NOTE | 2020-11-08 09:51 | OR ---
DATE OF PROCEDURE: 10/27/2020 SURGEON: Kenney Rodriguez MD PREOPERATIVE DIAGNOSIS: History of Parker's esophagus. POSTOPERATIVE DIAGNOSES: 1. History of Parker's esophagus with minimal inflammation at the esophagogastric junction. 2. Mild antral gastritis. OPERATIVE PROCEDURES: Esophagogastroduodenoscopy with: 1. Biopsies of the esophagogastric junction for histologic evaluation. 2. Biopsies of the antrum for CLOtest. ANESTHESIA: IV sedation. INDICATION FOR PROCEDURE: A 74-year-old presenting here for a followup upper endoscopy for evaluation of his Parker's esophagus. Potential risks of the procedure, including bleeding and perforation, were discussed, and the patient wishes to proceed. DETAILS OF PROCEDURE: The patient was taken to the operating room and placed in a left lateral decubitus position. IV sedation was administered, after which the upper GI endoscope was passed orally through the esophagus and into the stomach with retroflexion view of the fundus and thereafter through the pyloric channel and into the proximal duodenum. Findings included normal hypopharynx, larynx, upper esophageal sphincter, and esophageal body. At the EG junction, the patient was noted to have a small hiatal hernia present. There was also some upward extension of the columnar mucosa above the upper gastric folds as well as a single small island of columnar mucosa with relatively minimal gross inflammation. However, no stricturing, plaquing, or other signs of neoplastic change noted. In the stomach, there was some patchy redness in the antrum; otherwise, the remainder of the stomach and duodenal exams were unremarkable. At this point, biopsies were obtained from the antrum and sent for CLOtest for H pylori. Multiple biopsies were then obtained from area of the esophagogastric junction, focusing on the area of probable Parker's esophagus, and minimal bleeding from the biopsy site was seen, and the procedure was then concluded and the patient taken to the recovery room in satisfactory condition. The patient's symptoms have been controlled fairly well with Protonix 40 mg b.i.d. We will leave him on medical management assuming that there is no trend towards dysplasia seen on today's biopsies. The next upper endoscopy should be in the range of 2 to 3 years. Kenney Rodriguez MD /[id number]
== END 2020-10-27 11:40 | disposition home or self-care (01) ==
LOC: JP.SDS 08:17
PROVIDERS: ATTEND Surgery
DX: K29.70 Gastritis, unspecified, without bleeding (principal); K22.8 Other specified diseases of esophagus; K44.9 Diaphragmatic hernia without obstruction or gangrene; I10 Essential (primary) hypertension; I25.10 Atherosclerotic heart disease of native coronary artery without angina pectoris; E66.9 Obesity, unspecified; Z68.33 Body mass index [BMI] 33.0-33.9, adult; E03.9 Hypothyroidism, unspecified; Z87.19 Personal history of other diseases of the digestive system
CPT/HCPCS: 87081; 88305; J2704; J3010

== ENCOUNTER 2022-09-14 21:16 | Emergency (ER) | payer MEDICARE, BC ==
[2022-09-14 21:35] VITALS: BP 158/101; PULSE 74
[2022-09-14] MEDS ORDERED: Sodium Chloride 0.9% 10 ML Syringe FLUSH PRN (21:49)
[2022-09-14] MEDS ORDERED: HYDROmorphone 1 MG/ML Syringe IVPUSH ONE (21:51)
[2022-09-14] MEDS ORDERED: Ondansetron 4 MG/2 ML SDV IVPUSH ONE (21:51)
[2022-09-14] MEDS ORDERED: Sodium Chloride 0.9% 1,000 ML IV SCH (22:00)
[2022-09-14 22:25] LABS: ESTIMATED GFR 92 mL/min (>60)
[2022-09-14] MEDS ORDERED: Sodium Chloride 0.9% 50 ML IV SCH (22:30)
[2022-09-14] MEDS ORDERED: Iopamidol 612 MG/ML 100 ML Bottle IV SCH (22:30)
[2022-09-14] MEDS: Sodium Chloride 0.9% 10 ML Syringe FLUSH ONE ×2 (22:35→22:54)
[2022-09-15] MEDS ORDERED: Acetaminophen 500 MG Tab PO ONE (00:04)
[2022-09-15] MEDS ORDERED: Pantoprazole 40 MG Tab.CR PO SCH (00:15)
== END 2022-09-15 00:37 | disposition home or self-care (01) ==
LOC: JP.ED 21:16
DX: K57.30 Diverticulosis of large intestine without perforation or abscess without bleeding (principal); K52.9 Noninfective gastroenteritis and colitis, unspecified; N40.0 Benign prostatic hyperplasia without lower urinary tract symptoms; I25.10 Atherosclerotic heart disease of native coronary artery without angina pectoris; I10 Essential (primary) hypertension; K21.9 Gastro-esophageal reflux disease without esophagitis; E03.9 Hypothyroidism, unspecified; E66.9 Obesity, unspecified; Z68.33 Body mass index [BMI] 33.0-33.9, adult; Z79.01 Long term (current) use of anticoagulants; Z91.048 Other nonmedicinal substance allergy status; Z88.8 Allergy status to other drugs, medicaments and biological substances; Z88.1 Allergy status to other antibiotic agents; Z88.5 Allergy status to narcotic agent; Z79.899 Other long term (current) drug therapy
CPT/HCPCS: 36415; 74177; 80053; 81001; 83690; 85025; 85610; 86140; 96361; 96374; 96375; 99283; 99284-25; A9270-GY; J1170; J2405; J3490; J7030; Q9967

== ENCOUNTER 2023-04-12 21:40 | Emergency (ER) | payer MEDICARE, BC ==
[2023-04-12] MEDS ORDERED: Sodium Chloride 0.9% 10 ML Syringe FLUSH PRN (21:55)
[2023-04-12] MEDS ORDERED: Aspirin 81 MG Tab.Chew PO ONE (21:57)
[2023-04-12] MEDS ORDERED: Morphine 2 MG/ML SYRINGE IVPUSH ONE (21:57)
[2023-04-12 21:59] LABS: BASOPHILS ABSOLUTE AUTO 0.03 K/uL (0.00-0.10); BASOPHILS PERCENT AUTO 0.5 % (0.1-1.3); EOSINOPHILS ABSOLUTE AUTO 0.16 K/uL (0.00-0.40); EOSINOPHILS PERCENT AUTO 2.4 % (0.0-5.4); HEMOGLOBIN 13.4 g/dL (12.9-16.9); IMMATURE GRAN PERCENT AUTO 0.3 % (0.0-0.7); LYMPHOCYTES ABSOLUTE AUTO 2.15 K/uL (0.8-3.3); LYMPHOCYTES PERCENT AUTO 32.3 % (11.4-47.7); MEAN CORPUSCULAR HEMOGLOBIN 31.3 pg (31.6-35.5); MEAN CORPUSCULAR HGB CONC 34.4 g/dL (31.6-35.5); MEAN CORPUSCULAR VOLUME 91.1 fL (81.4-99.0); MONOCYTES ABSOLUTE AUTO 0.77 K/uL (0.20-0.90); MONOCYTES PERCENT AUTO 11.6 % (3.3-12.6); NEUTROPHILS ABSOLUTE AUTO 3.52 K/uL (1.0-7.6); NEUTROPHILS PERCENT AUTO 52.9 % (40.0-78.1); PLATELET COUNT,PLT 189 K/uL (130-375); RED BLOOD CELL COUNT 4.28 M/uL (4.14-5.76); WHITE BLOOD CELL COUNT,WBC 6.7 K/uL (3.2-11.0)
[2023-04-12 22:00] LABS: IMMATURE GRAN ABSOLUTE AUTO 0.02 K/uL (0.00-0.23)
[2023-04-12 22:12] LABS: INR 2.3; PROTHROMBIN TIME 22.4 sec (9.2-10.6); PTT,PARTIAL THROMBOPLSTIN TIME 33.3 sec (21.8-27.3)
[2023-04-12 22:16] LABS: ANION GAP 7.8 mmol/L (5.0-14.0); CALCIUM 8.6 mg/dL (8.5-10.1); CREATININE 0.9 mg/dL (0.8-1.3); EST CRCL DRUG DOSING (CG) 67.56 mL/min; POTASSIUM,K 3.7 mmol/L (3.6-5.2); TROPONIN I HIGH SENSITIVITY 7.9 pg/mL (<=60.3)
[2023-04-12 23:31] VITALS: BP 142/85; PULSE 56
== END 2023-04-12 23:35 | disposition home or self-care (01) ==
LOC: JP.ED 21:40
DX: M75.42 Impingement syndrome of left shoulder (principal); M19.012 Primary osteoarthritis, left shoulder; I25.10 Atherosclerotic heart disease of native coronary artery without angina pectoris; I10 Essential (primary) hypertension; E78.00 Pure hypercholesterolemia, unspecified; K21.9 Gastro-esophageal reflux disease without esophagitis; E03.9 Hypothyroidism, unspecified; E66.9 Obesity, unspecified; Z68.32 Body mass index [BMI] 32.0-32.9, adult; Z79.01 Long term (current) use of anticoagulants; Z79.899 Other long term (current) drug therapy; Z88.8 Allergy status to other drugs, medicaments and biological substances; Z88.5 Allergy status to narcotic agent
CPT/HCPCS: 36415; 73030; 80048; 84484; 85025; 85610; 85730; 93005; 99285; A9270

== ENCOUNTER 2023-05-10 08:00 | Emergency (ER) | payer MEDICARE, BC ==
[2023-05-10 08:42] VITALS: BP 128/74; PULSE 69
[2023-05-10 09:00] LABS: BASOPHILS ABSOLUTE AUTO 0.03 K/uL (0.00-0.10); BASOPHILS PERCENT AUTO 0.6 % (0.1-1.3); EOSINOPHILS ABSOLUTE AUTO 0.05 K/uL (0.00-0.40); HEMOGLOBIN 13.8 g/dL (12.9-16.9); IMMATURE GRAN PERCENT AUTO 0.2 % (0.0-0.7); LYMPHOCYTES ABSOLUTE AUTO 1.07 K/uL (0.8-3.3); LYMPHOCYTES PERCENT AUTO 21.3 % (11.4-47.7); MEAN CORPUSCULAR HEMOGLOBIN 30.7 pg (31.6-35.5); MEAN CORPUSCULAR HGB CONC 33.7 g/dL (31.6-35.5); MEAN CORPUSCULAR VOLUME 91.3 fL (81.4-99.0); MONOCYTES ABSOLUTE AUTO 0.51 K/uL (0.20-0.90); MONOCYTES PERCENT AUTO 10.2 % (3.3-12.6); NEUTROPHILS ABSOLUTE AUTO 3.35 K/uL (1.0-7.6); NEUTROPHILS PERCENT AUTO 66.7 % (40.0-78.1); PLATELET COUNT,PLT 191 K/uL (130-375); RED BLOOD CELL COUNT 4.49 M/uL (4.14-5.76)
[2023-05-10 09:01] LABS: IMMATURE GRAN ABSOLUTE AUTO 0.01 K/uL (0.00-0.23)
[2023-05-10] MEDS ORDERED: Sodium Chloride 0.9% 10 ML Syringe FLUSH ONE (09:24)
[2023-05-10] MEDS ORDERED: Iopamidol 612 MG/ML 100 ML Bottle IV SCH (09:30)
[2023-05-10] MEDS ORDERED: Sodium Chloride 0.9% 50 ML IV SCH (09:30)
[2023-05-10 09:31] LABS: A/G RATIO 1.2 (1.2-2.2); ALANINE AMINOTRANSFERASE,ALT 30 U/L (12-78); ALBUMIN 3.6 g/dL (3.4-5.0); ALKALINE PHOSPHATASE 83 U/L (46-116); ASPARTATE AMNIOTRANSFERASE,AST 25 U/L (15-37); BILIRUBIN TOTAL 0.6 mg/dL (0.2-1.0); BLOOD UREA NITROGEN,BUN 14 mg/dL (7-18); CALCIUM 8.2 mg/dL (8.5-10.1); CARBON DIOXIDE,CO2 26 mmol/L (21-32); CHLORIDE,CL 104 mmol/L (100-108); CREATININE 0.9 mg/dL (0.8-1.3); EST CRCL DRUG DOSING (CG) 65.28 mL/min; ESTIMATED GFR 89 mL/min (>60); GLUCOSE RANDOM 107 mg/dL (74-106); POTASSIUM,K 4.2 mmol/L (3.6-5.2); PROTEIN TOTAL,TP 6.7 g/dL (6.4-8.2); SODIUM,NA 139 mmol/L (140-148)
[2023-05-10 09:33] LABS: ANION GAP 13.2 mmol/L (5.0-14.0)
== END 2023-05-10 10:46 | disposition home or self-care (01) ==
LOC: JP.ED 08:00
DX: A08.4 Viral intestinal infection, unspecified (principal); I25.10 Atherosclerotic heart disease of native coronary artery without angina pectoris; I10 Essential (primary) hypertension; E78.00 Pure hypercholesterolemia, unspecified; K21.9 Gastro-esophageal reflux disease without esophagitis; E03.9 Hypothyroidism, unspecified; E66.9 Obesity, unspecified; Z86.73 Personal history of transient ischemic attack (TIA), and cerebral infarction without residual deficits; Z79.01 Long term (current) use of anticoagulants; Z79.899 Other long term (current) drug therapy; Z88.5 Allergy status to narcotic agent; Z88.8 Allergy status to other drugs, medicaments and biological substances; Z88.1 Allergy status to other antibiotic agents; Z91.048 Other nonmedicinal substance allergy status; Z68.33 Body mass index [BMI] 33.0-33.9, adult
CPT/HCPCS: 36415; 74177; 80053; 83605; 83690; 85025; 99284; J3490; Q9967; 99283

== ENCOUNTER 2023-05-27 06:11 | Day surgery (SDC) | payer MEDICARE, BC ==
[2023-05-27] MEDS ORDERED: Dextrose 5%-Lactated Ringers 1,000 ML IV SCH (07:00)
[2023-05-27] MEDS ORDERED: fentaNYL 50 MCG/ML SDV ONE (07:07)
[2023-05-27] MEDS ORDERED: Propofol 200 MG/20 ML SDV ONE ×3 (07:07→09:10)
[2023-05-27 10:12] VITALS: BP 124/77; PULSE 58
== END 2023-05-27 10:55 | disposition home or self-care (01) ==
LOC: JP.SDS 06:11
PROVIDERS: ATTEND Surgery
DX: D12.0 Benign neoplasm of cecum (principal); D12.2 Benign neoplasm of ascending colon; D12.3 Benign neoplasm of transverse colon; D12.5 Benign neoplasm of sigmoid colon; K63.5 Polyp of colon; K64.9 Unspecified hemorrhoids; I10 Essential (primary) hypertension; I25.10 Atherosclerotic heart disease of native coronary artery without angina pectoris; Z86.73 Personal history of transient ischemic attack (TIA), and cerebral infarction without residual deficits
CPT/HCPCS: 45385; 88305; J2704; J3010

== ENCOUNTER 2023-09-19 07:42 | Emergency (ER) | payer MEDICARE, BC ==
[2023-09-19] MEDS ORDERED: Ondansetron 4 MG Tab.DIS PO ONE (08:18)
[2023-09-19] MEDS ORDERED: Simethicone 125 MG Tab.Chew PO STA (08:19)
[2023-09-19] MEDS ORDERED: Sodium Chloride 0.9% 10 ML Syringe FLUSH PRN ×2 (08:29→08:52)
[2023-09-19] MEDS ORDERED: Sodium Chloride 0.9% 1,000 ML IV SCH (08:30)
[2023-09-19 08:32] LABS: BASOPHILS PERCENT AUTO 0.2 % (0.1-1.3); EOSINOPHILS ABSOLUTE AUTO 0.03 K/uL (0.00-0.40); EOSINOPHILS PERCENT AUTO 0.2 % (0.0-5.4); HEMATOCRIT 44.4 % (38.4-49.7); HEMOGLOBIN 14.9 g/dL (12.9-16.9); IMMATURE GRAN ABSOLUTE AUTO 0.04 K/uL (0.00-0.23); IMMATURE GRAN PERCENT AUTO 0.3 % (0.0-0.7); LYMPHOCYTES ABSOLUTE AUTO 0.66 K/uL (0.8-3.3); MEAN CORPUSCULAR HEMOGLOBIN 30.7 pg (31.6-35.5); MEAN CORPUSCULAR HGB CONC 33.6 g/dL (31.6-35.5); MEAN CORPUSCULAR VOLUME 91.5 fL (81.4-99.0); MONOCYTES ABSOLUTE AUTO 0.87 K/uL (0.20-0.90); MONOCYTES PERCENT AUTO 6.5 % (3.3-12.6); NEUTROPHILS ABSOLUTE AUTO 11.69 K/uL (1.0-7.6); NEUTROPHILS PERCENT AUTO 87.8 % (40.0-78.1); PLATELET COUNT,PLT 214 K/uL (130-375); RED BLOOD CELL COUNT 4.85 M/uL (4.14-5.76); WHITE BLOOD CELL COUNT,WBC 13.3 K/uL (3.2-11.0)
[2023-09-19 08:34] LABS: BASOPHILS ABSOLUTE AUTO 0.02 K/uL (0.00-0.10)
[2023-09-19] MEDS ORDERED: Sodium Chloride 0.9% 50 ML IV ONE (08:52)
[2023-09-19] MEDS ORDERED: Iopamidol 612 MG/ML 100 ML Bottle IV PRN (08:52)
[2023-09-19 08:53] LABS: A/G RATIO 1.3 (1.2-2.2); ALANINE AMINOTRANSFERASE,ALT 31 U/L (12-78); ALBUMIN 3.6 g/dL (3.4-5.0); ALKALINE PHOSPHATASE 80 U/L (46-116); ANION GAP 10.8 mmol/L (5.0-14.0); ASPARTATE AMNIOTRANSFERASE,AST 32 U/L (15-37); BILIRUBIN TOTAL 0.5 mg/dL (0.2-1.0); BLOOD UREA NITROGEN,BUN 15 mg/dL (7-18); CALCIUM 8.3 mg/dL (8.5-10.1); CARBON DIOXIDE,CO2 26 mmol/L (21-32); CHLORIDE,CL 104 mmol/L (100-108); CREATININE 0.9 mg/dL (0.8-1.3); EST CRCL DRUG DOSING (CG) 65.28 mL/min; ESTIMATED GFR 89 mL/min (>60); GLUCOSE RANDOM 114 mg/dL (74-106); POTASSIUM,K 3.9 mmol/L (3.6-5.2); PROTEIN TOTAL,TP 6.3 g/dL (6.4-8.2); SODIUM,NA 141 mmol/L (140-148)
[2023-09-19 09:18] VITALS: BP 139/79; PULSE 78
[2023-09-19] MEDS ORDERED: Ketorolac 30 MG/ML SDV IV ONE (09:48)
[2023-09-19] MEDS ORDERED: Ondansetron 4 MG/2 ML SDV IVPUSH ONE (10:24)
[2023-09-19 10:41] LABS: APPEARANCE,URINE CLEAR (CLEAR); BILIRUBIN,URINE NEGATIVE (NEGATIVE); COLOR,URINE YELLOW (YELLOW); GLUCOSE,URINE NEGATIVE (NEGATIVE); KETONES,URINE NEGATIVE (NEGATIVE); LEUKOCYTE ESTERASE,URINE NEGATIVE (NEGATIVE); NITRITE,URINE NEGATIVE (NEGATIVE); OCCULT BLOOD,URINE NEGATIVE (NEGATIVE); PH,URINE 8.5 (5.0-8.0); PROTEIN,URINE NEGATIVE (NEGATIVE); UROBILINOGEN,URINE 0.2 EU/dL (0.2-1.0)
[2023-09-19 10:53] LABS: AMORPHOUS SEDIMENT,URINE RARE; BACTERIA,URINE NOT SEEN; EPITHELIAL CELLS,URINE NOT SEEN; MUCUS,URINE NOT SEEN; RBC,URINE NOT SEEN (0-5); WBC,URINE NOT SEEN (0-5)
== END 2023-09-19 13:09 | disposition home or self-care (01) ==
LOC: JP.ED 07:42
DX: K57.30 Diverticulosis of large intestine without perforation or abscess without bleeding (principal); I25.10 Atherosclerotic heart disease of native coronary artery without angina pectoris; I10 Essential (primary) hypertension; E78.00 Pure hypercholesterolemia, unspecified; K21.9 Gastro-esophageal reflux disease without esophagitis; E03.9 Hypothyroidism, unspecified; E66.9 Obesity, unspecified; Z86.73 Personal history of transient ischemic attack (TIA), and cerebral infarction without residual deficits; Z79.01 Long term (current) use of anticoagulants; Z79.899 Other long term (current) drug therapy; Z88.5 Allergy status to narcotic agent; Z88.8 Allergy status to other drugs, medicaments and biological substances; Z91.048 Other nonmedicinal substance allergy status; Z88.6 Allergy status to analgesic agent; Z68.33 Body mass index [BMI] 33.0-33.9, adult
CPT/HCPCS: 36415; 74177; 74177-26; 80053; 81001; 83605; 83690; 85025; 96374; 96375; 99284; 99284-25; A9270-GY; J1885; J2405; J7030; Q0162

== ENCOUNTER 2023-11-26 12:16 | Emergency (ER) | payer MEDICARE, BC ==
[2023-11-26 13:30] VITALS: BP 150/87; PULSE 72
[2023-11-26] MEDS: Lidocaine 1% with EPINEPHrine 1:100,000 50 ML MDV SUBCUT STA (16:20)
[2023-11-26] MEDS: Bacitracin Oint 1 GM U/D Packet TOP ONE (16:21)
== END 2023-11-26 16:21 | disposition home or self-care (01) ==
LOC: JP.ED 12:16
DX: S09.90XA Unspecified injury of head, initial encounter (principal); S61.412A Laceration without foreign body of left hand, initial encounter; E78.00 Pure hypercholesterolemia, unspecified; K21.9 Gastro-esophageal reflux disease without esophagitis; E03.9 Hypothyroidism, unspecified; Z91.048 Other nonmedicinal substance allergy status; Z88.1 Allergy status to other antibiotic agents; Z88.5 Allergy status to narcotic agent; Z88.8 Allergy status to other drugs, medicaments and biological substances; Z90.49 Acquired absence of other specified parts of digestive tract; Z79.899 Other long term (current) drug therapy; Z79.01 Long term (current) use of anticoagulants; Z86.73 Personal history of transient ischemic attack (TIA), and cerebral infarction without residual deficits; W08.XXXA Fall from other furniture, initial encounter; Y92.009 Unspecified place in unspecified non-institutional (private) residence as the place of occurrence of the external cause
CPT/HCPCS: 12002; 70450; 70450-26; 99283

== ENCOUNTER 2024-02-16 19:51 | Emergency (ER) | payer MEDICARE, BC ==
[2024-02-16 20:01] VITALS: BP 133/82; PULSE 87
[2024-02-16] MEDS: Lidocaine 1% 5 ML VIAL INJECT ONE (20:23)
[2024-02-16] MEDS: Bacitracin Oint 1 GM U/D Packet TOP ONE (20:23)
== END 2024-02-16 21:01 | disposition home or self-care (01) ==
LOC: JP.ED 19:51
DX: S61.310A Laceration without foreign body of right index finger with damage to nail, initial encounter (principal); E78.00 Pure hypercholesterolemia, unspecified; K21.9 Gastro-esophageal reflux disease without esophagitis; E03.9 Hypothyroidism, unspecified; E66.9 Obesity, unspecified; Z90.49 Acquired absence of other specified parts of digestive tract; Z88.5 Allergy status to narcotic agent; Z88.8 Allergy status to other drugs, medicaments and biological substances; Z91.048 Other nonmedicinal substance allergy status; Z68.26 Body mass index [BMI] 26.0-26.9, adult; W26.0XXA Contact with knife, initial encounter
CPT/HCPCS: 12001; 99282; 99283

== ENCOUNTER 2024-07-04 15:57 | Emergency (ER) | payer MEDICARE, BC ==
[2024-07-04 16:33] LABS: BASOPHILS PERCENT AUTO 0.2 % (0.1-1.3); EOSINOPHILS ABSOLUTE AUTO 0.06 K/uL (0.00-0.40); EOSINOPHILS PERCENT AUTO 0.6 % (0.0-5.4); HEMATOCRIT 37.9 % (38.4-49.7); IMMATURE GRAN ABSOLUTE AUTO 0.03 K/uL (0.00-0.23); IMMATURE GRAN PERCENT AUTO 0.3 % (0.0-0.7); LYMPHOCYTES ABSOLUTE AUTO 1.41 K/uL (0.8-3.3); LYMPHOCYTES PERCENT AUTO 13.9 % (11.4-47.7); MEAN CORPUSCULAR HEMOGLOBIN 31.9 pg (31.6-35.5); MEAN CORPUSCULAR HGB CONC 34.3 g/dL (31.6-35.5); MEAN CORPUSCULAR VOLUME 92.9 fL (81.4-99.0); MONOCYTES PERCENT AUTO 10.8 % (3.3-12.6); NEUTROPHILS ABSOLUTE AUTO 7.52 K/uL (1.0-7.6); NEUTROPHILS PERCENT AUTO 74.2 % (40.0-78.1); PLATELET COUNT,PLT 192 K/uL (130-375); RED BLOOD CELL COUNT 4.08 M/uL (4.14-5.76); WHITE BLOOD CELL COUNT,WBC 10.1 K/uL (3.2-11.0)
[2024-07-04] MEDS: Methocarbamol 500 MG Tab PO ONE (16:36)
[2024-07-04 16:41] LABS: BASOPHILS ABSOLUTE AUTO 0.02 K/uL (0.00-0.10)
[2024-07-04 16:57] VITALS: PULSE 70
[2024-07-04 17:06] LABS: ANION GAP 9.2 mmol/L (5.0-14.0); CALCIUM 9.1 mg/dL (8.5-10.1); CREATININE 0.9 mg/dL (0.8-1.3); EST CRCL DRUG DOSING (CG) 66.5 mL/min; POTASSIUM,K 3.8 mmol/L (3.6-5.2); TROPONIN I HIGH SENSITIVITY 8.5 pg/mL (<=60.3)
[2024-07-04 18:20] VITALS: BP 124/83
== END 2024-07-04 18:20 | disposition home or self-care (01) ==
LOC: JP.ED 15:57
DX: R07.81 Pleurodynia (principal); E78.00 Pure hypercholesterolemia, unspecified; E03.9 Hypothyroidism, unspecified; E66.9 Obesity, unspecified; Z68.33 Body mass index [BMI] 33.0-33.9, adult; K21.9 Gastro-esophageal reflux disease without esophagitis; Z90.49 Acquired absence of other specified parts of digestive tract; Z79.890 Hormone replacement therapy; Z79.899 Other long term (current) drug therapy; Z88.5 Allergy status to narcotic agent; Z88.8 Allergy status to other drugs, medicaments and biological substances; Z91.048 Other nonmedicinal substance allergy status
CPT/HCPCS: 36415; 71046; 80048; 84484; 85025; 93005; 99284; A9270; 93010; 99283

== ENCOUNTER 2025-05-10 11:39 | Emergency (ER) | payer MEDICARE, BC ==
[2025-05-10 12:13] VITALS: BP 137/84; PULSE 86
[2025-05-10] MEDS ORDERED: Sodium Chloride 0.9% 10 ML Syringe FLUSH PRN (12:28)
[2025-05-10 12:35] LABS: BASOPHILS ABSOLUTE AUTO 0.04 K/uL (0.00-0.10); BASOPHILS PERCENT AUTO 0.4 % (0.1-1.3); EOSINOPHILS PERCENT AUTO 0.1 % (0.0-5.4); IMMATURE GRAN PERCENT AUTO 0.2 % (0.0-0.7); LYMPHOCYTES ABSOLUTE AUTO 1.36 K/uL (0.8-3.3); LYMPHOCYTES PERCENT AUTO 13.9 % (11.4-47.7); MONOCYTES ABSOLUTE AUTO 0.77 K/uL (0.20-0.90); MONOCYTES PERCENT AUTO 7.9 % (3.3-12.6); NEUTROPHILS ABSOLUTE AUTO 7.60 K/uL (1.0-7.6); NEUTROPHILS PERCENT AUTO 77.5 % (40.0-78.1); PLATELET COUNT,PLT 215 K/uL (130-375); RED BLOOD CELL COUNT 4.36 M/uL (4.14-5.76); WHITE BLOOD CELL COUNT,WBC 9.8 K/uL (3.2-11.0)
[2025-05-10 12:37] LABS: EOSINOPHILS ABSOLUTE AUTO 0.01 K/uL (0.00-0.40); IMMATURE GRAN ABSOLUTE AUTO 0.02 K/uL (0.00-0.23)
[2025-05-10 12:43] LABS: INR 2.9
[2025-05-10 12:50] LABS: A/G RATIO 1.6 (1.2-2.2); ALANINE AMINOTRANSFERASE,ALT 29 U/L (12-78); ASPARTATE AMNIOTRANSFERASE,AST 25 U/L (15-37); BILIRUBIN TOTAL 0.5 mg/dL (0.2-1.0); BLOOD UREA NITROGEN,BUN 13 mg/dL (7-18); CARBON DIOXIDE,CO2 26 mmol/L (21-32); CHLORIDE,CL 107 mmol/L (100-108); CREATININE 0.8 mg/dL (0.8-1.3); EST CRCL DRUG DOSING (CG) 71.15 mL/min; ESTIMATED GFR 91 mL/min (>60); GLUCOSE RANDOM 104 mg/dL (74-106); POTASSIUM,K 4.1 mmol/L (3.6-5.2); PROTEIN TOTAL,TP 6.5 g/dL (6.4-8.2); SODIUM,NA 143 mmol/L (140-148); TROPONIN I HIGH SENSITIVITY 8.2 pg/mL (<=60.3)
[2025-05-10] MEDS: Ondansetron 4 MG/2 ML SDV IVPUSH ONE (13:07)
[2025-05-10] MEDS: fentaNYL 100 MCG/2 ML SDV IVPUSH ONE (13:07)
[2025-05-10] MEDS: Iopamidol 612 MG/ML 100 ML Bottle IV PRN (13:14)
[2025-05-10] MEDS: Sodium Chloride 0.9% 10 ML Syringe FLUSH ONE (13:14)
== END 2025-05-10 14:31 | disposition home or self-care (01) ==
LOC: JP.ED 11:39
DX: R10.84 Generalized abdominal pain (principal); I10 Essential (primary) hypertension; E78.00 Pure hypercholesterolemia, unspecified; E66.9 Obesity, unspecified; E03.9 Hypothyroidism, unspecified; Z88.8 Allergy status to other drugs, medicaments and biological substances; Z91.048 Other nonmedicinal substance allergy status; Z79.890 Hormone replacement therapy; Z79.01 Long term (current) use of anticoagulants; Z79.899 Other long term (current) drug therapy; Z90.49 Acquired absence of other specified parts of digestive tract; Z68.33 Body mass index [BMI] 33.0-33.9, adult
CPT/HCPCS: 36415; 74177; 80053; 83605; 83690; 84484; 85025; 85610; 96374; 96375; 99284; J2405; J3010; J7030; Q9967

== ENCOUNTER 2025-05-24 07:42 | Day surgery (SDC) | payer MEDICARE, BC ==
[~2025-05-24 07:42] MED LIST: Propofol 200 MG/20 ML SDV ONE; fentaNYL 50 MCG/ML SDV ONE
[2025-05-24] MEDS: Lactated Ringers 1,000 ML IV SCH (08:15)
[2025-05-24 12:42] VITALS: BP 169/91; PULSE 69
== END 2025-05-24 11:15 | disposition home or self-care (01) ==
LOC: JP.SDS 07:42
PROVIDERS: ATTEND Surgery
DX: Z12.11 Encounter for screening for malignant neoplasm of colon (principal); D12.2 Benign neoplasm of ascending colon; D12.0 Benign neoplasm of cecum; K57.30 Diverticulosis of large intestine without perforation or abscess without bleeding; E78.00 Pure hypercholesterolemia, unspecified; I10 Essential (primary) hypertension; E03.9 Hypothyroidism, unspecified; E66.9 Obesity, unspecified; Z68.30 Body mass index [BMI] 30.0-30.9, adult; Z88.8 Allergy status to other drugs, medicaments and biological substances; Z88.5 Allergy status to narcotic agent; Z91.09 Other allergy status, other than to drugs and biological substances; Z86.0100 Personal history of colon polyps, unspecified; Z79.01 Long term (current) use of anticoagulants; Z79.899 Other long term (current) drug therapy; Z79.890 Hormone replacement therapy
CPT/HCPCS: 00811; 45385; J2704; J3010; J7120; 88305